=== PATIENT | male | born 1960 | race Caucasian/White ===

== ENCOUNTER 2023-10-09 08:14 | Outpatient (CLI) | payer BC | END 2023-10-09 08:15 | disposition home or self-care (01) | LOC: CSHCT 08:14 | PROVIDERS: ATTEND Family Medicine | DX: R91.8 Other nonspecific abnormal finding of lung field (principal); J98.11 Atelectasis; I25.10 Atherosclerotic heart disease of native coronary artery without angina pectoris; M85.9 Disorder of bone density and structure, unspecified | CPT/HCPCS: 71250 ==